=== PATIENT | male | born 1950 | race African-American/Black ===

== ENCOUNTER 2016-12-04 13:17 | Inpatient (IN) | payer BC ==
[~2016-12-04] VITALS: Ht 172.7 cm; Wt 82.7 kg
[2016-12-04 14:16] LABS: BASO # 0.1 x10^3/uL (0.0-0.2); BASO % 1 % (0-3); EOS % 2 % (0-3); HEMATOCRIT 43.4 % (39.0-53.0); HEMOGLOBIN 14.5 g/dL (13.0-17.5); LYMPH # 2.1 x10^3/uL (1.0-4.8); LYMPH % 27 % (24-48); MEAN CORPUSCULAR HEMOGLOBIN 32 pg (25-35); MEAN CORPUSCULAR HGB CONC 34 g/dL (31-37); MEAN CORPUSCULAR VOLUME 95 fL (79-100); MONO % 7 % (0-9); NEUT % 64 % (31-73); PLATELET COUNT 197 x10^3/uL (140-400); RED BLOOD COUNT 4.56 x10^6/uL (4.30-5.70); RED CELL DISTRIBUTION WIDTH 14.6 % (11.5-14.5); WHITE BLOOD COUNT 7.9 x10^3/uL (4.0-11.0)
[2016-12-04 14:27] LABS: PROTHROMBIN TIME PATIENT 12.5 SEC (11.7-14.0)
[2016-12-04 14:40] LABS: CALCIUM 9.7 mg/dL (8.5-10.1); CREATININE 1.4 mg/dL (0.7-1.3); GFR 61.7; POTASSIUM 3.6 mmol/L (3.5-5.1)
[2016-12-04 14:43] LABS: ALBUMIN 3.3 g/dL (3.4-5.0); ALBUMIN/GLOBULIN RATIO 0.7 (1.0-1.7); TOTAL BILIRUBIN 0.3 mg/dL (0.2-1.0); TOTAL PROTEIN 7.9 g/dL (6.4-8.2)
[2016-12-04] MEDS ORDERED: ASPIRIN 325 MG TABLET PO ONE (14:45)
[2016-12-04] MEDS ORDERED: HEPARIN for IV BOLUS 10,000 UNIT/10 ML VIAL. IV PRN (15:00)
--- NOTE | 2016-12-04 15:05 | RAD ---
Portable chest, 12/04/2016: History: Shortness of breath Comparison is made to a study from 03/10/2013. The heart is within normal limits in size. There is mild tortuosity of the aorta. The pulmonary vascularity appears to be congested with mild loss of vascular margination. No pulmonary consolidation is seen. There is no evidence of pleural fluid. IMPRESSION: Vascular congestion with probable mild perihilar-perivascular pulmonary edema.
[2016-12-04] MEDS ORDERED: IOHEXOL 300 MG/ML 75 ML VIAL IV ONE (15:15)
[2016-12-04] MEDS ORDERED: CONTRAST GIVEN MC PRN (15:15)
[2016-12-04] MEDS ORDERED: HEPARIN for IV BOLUS 10,000 UNIT/10 ML VIAL. IV ONE (15:30)
[2016-12-04] MEDS ORDERED: FUROSEMIDE 40 MG/4 ML VIAL. IVP ONE (15:30)
--- NOTE | 2016-12-04 15:34 | PDOC2 ---
HANNAH SEWELL CHECK OUT CLERK 12/04/16 1534: CARDIAC CONSULT DATE OF CONSULT Date of Consult DATE: 12/04/16 TIME: 15:31 REASON FOR CONSULT Reason for Consult: Chest pain REFERRING PHYSICIAN Referring Physician: Fiona SOURCE Source: Chart review, Patient HISTORY OF PRESENT ILLNESS HISTORY OF PRESENT ILLNESS This is a pleasant 66 yo male admitted for complains of SOA. reports that this started 2 days ago. Typical home activities such as going around the house and stairs made him easily SOA. He noticed that since this started it has progressed. Reports that the other night he was trying to go to bed and he was restless and SOA. Positive for orthopnea. 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 Reports that his chest pain lasted about 1 hour before it got a little better. He said he does not have any routine use of marijuana and cocaine but he last used both last Sunday. He also smokes tobacco. Denies any prior CAD, VTE, recent injury, falls , MVA nor CHF. No excessive caffeinated beverage use nor routine use of NSAIDS. Reports no prior CHF or any arrhythmias in the past. Medication bernard he takes lisinopril and HCTZ which he skips at times. PAST MEDICAL HISTORY Cardiovascular: HTN Pulmonary: Other (SIXTO) CENTRAL NERVOUS SYSTEM: Other (No pertinent history) GI: No pertinent hx Heme/Onc: No pertinent hx Hepatobiliary: No pertinent hx Psych: No pertinent hx Musculoskeletal: Osteoarthritis Rheumatologic: No pertinent hx Infectious disease: No pertinent hx ENT: No pertinent hx Renal/: Chronic renal insuff (?) Endocrine: No pertinent hx Dermatology: No pertinent hx PAST SURGICAL HISTORY Past Surgical History: No pertinent history FAMILY HISTORY Family History noncontributory to CV SOCIAL HISTORY Smoke: No ALCOHOL: occassional Drugs: Cocaine, Marijuana Lives: Alone CURRENT MEDICATIONS CURRENT MEDICATIONS Current Medications Medications (Trade) Dose Ordered Sig/Dorita Route PRN Reason Start Time Stop Time Status Last Admin Dose Admin Aspirin (Kristy Aspirin) 325 mg 1X ONCE PO 12/04/16 14:45 12/04/16 14:46 DC 12/04/16 14:24 Iohexol (Omnipaque 300 Mg/ml) 75 ml 1X ONCE IV 12/04/16 15:15 12/04/16 15:16 DC 12/04/16 15:23 ALLERGIES ALLERGIES: Coded Allergies: No Known Drug Allergies (Unverified , 12/04/16) ROS Review of System 14 point ROS evaluated with pertinent positives noted per HPI PHYSICAL EXAM General: Alert, Oriented X3, Cooperative, mild distress HEENT: Atraumatic, Mucous membr. moist/pink Lungs: Other (bibasilar crackles) Heart: Regular rate, Normal S1, Normal S2, Other (S3; 2/6 systolic murmur to LLS border) Abdomen: Soft, No tenderness Extremities: No cyanosis, Other (trace LE edema) Skin: No breakdown, No significant lesion Neuro: Normal speech, Sensation intact Psych/Mental Status: Mental status NL, Mood NL MUSCULOSKELETAL: Osteoarthritic changes both hands VITALS VITALS Vital Signs Date Time Temp Pulse Resp B/P Pulse Ox O2 Delivery O2 Flow Rate FiO2 12/04/16 13:38 98.4 110 20 198/120 90 Room Air 98.4 LABS Lab: Laboratory Tests Test 12/04/16 13:30 White Blood Count 7.9x10^3/uL (4.0-11.0) Red Blood Count 4.56x10^6/uL (4.30-5.70) Hemoglobin 14.5g/dL (13.0-17.5) Hematocrit 43.4% (39.0-53.0) Mean Corpuscular Volume 95fL (79-100) Mean Corpuscular Hemoglobin 32pg (25-35) Mean Corpuscular Hemoglobin Concent 34g/dL (31-37) Red Cell Distribution Width 14.6% (11.5-14.5) Platelet Count 197x10^3/uL (140-400) Neutrophils (%) (Auto) 64% (31-73) Lymphocytes (%) (Auto) 27% (24-48) Monocytes (%) (Auto) 7% (0-9) Eosinophils (%) (Auto) 2% (0-3) Basophils (%) (Auto) 1% (0-3) Neutrophils # (Auto) 5.1x10^3uL (1.8-7.7) Lymphocytes # (Auto) 2.1x10^3/uL (1.0-4.8) Monocytes # (Auto) 0.6x10^3/uL (0.0-1.1) Eosinophils # (Auto) 0.1x10^3/uL (0.0-0.7) Basophils # (Auto) 0.1x10^3/uL (0.0-0.2) Prothrombin Time 12.5SEC (11.7-14.0) Prothromb Time International Ratio 1.0 (0.8-1.1) Activated Partial Thromboplast Time 27SEC (24-38) D-Dimer (Juany) 0.72ug/mlFEU (0.00-0.50) Sodium Level 143mmol/L (136-145) Potassium Level 3.6mmol/L (3.5-5.1) Chloride Level 106mmol/L (98-107) Carbon Dioxide Level 26mmol/L (21-32) Anion Gap 11 (6-14) Blood Urea Nitrogen 18mg/dL (8-26) Creatinine 1.4mg/dL (0.7-1.3) Estimated GFR (Cockcroft-Gault) 61.7 BUN/Creatinine Ratio 13 (6-20) Glucose Level 117mg/dL (70-99) Calcium Level 9.7mg/dL (8.5-10.1) Total Bilirubin 0.3mg/dL (0.2-1.0) Aspartate Amino Transf (AST/SGOT) 80U/L (15-37) Alanine Aminotransferase (ALT/SGPT) 80U/L (16-63) Alkaline Phosphatase 81U/L (46-116) Troponin I Quantitative 0.194ng/mL (0.000-0.055) JK-Brf-L-Type Natriuretic Peptide 3733pg/mL (0-124) Total Protein 7.9g/dL (6.4-8.2) Albumin 3.3g/dL (3.4-5.0) Albumin/Globulin Ratio 0.7 (1.0-1.7) ASSESSMENT/PLAN ASSESSMENT/PLAN 1. Acute CHF with possible diastolic dysfunction 2. Malignant HTN: hx of HTN with home ACEi/HCTZ use 3. Chest pain: Initial troponin 0.194. EKG SR with LAFB/LVH/BRADEN. Suspect induced by above with associated cocaine use 4. Polysubstance abuse: use marijuana and recent use of cocaine Sunday last week. 5. Hx of SIXTO: never got started on CPAP 6. Noncompliance: he skips his HTN meds. 7. Tobaccoism: 5 pk yr Recommendations 1. Vasotec IV x1. No BB with cocaine use 2. Restart home ACEi, start on norvasc. 3. Trend troponin, check TSH, lipids, Mg, 4. Lasix IV. 5. ECASA. Heparin drip initiated. 6. CTA has been done per ED awaiting results. 7. Discussed compliance and smoking cessation and abstinence from substance abuse. 8. Await TTE and will consider for ischemic workup.. Problems: JOSE M BALLESTEROS MD 12/04/16 1837: CARDIAC CONSULT ALLERGIES ALLERGIES: Coded Allergies: No Known Drug Allergies (Unverified , 12/04/16) ASSESSMENT/PLAN ASSESSMENT/PLAN Pt. seen and examined. Agree with above OYSTER FLOATER note. 66 y.o male with malignant HTN, polysubstance abuse. ON exam he has normal heart tones. No edema. Labs/echo reviewed. Medical therapy and when compliant, can consider outpt cath. Problems: HANNAH SEWELL CHECK OUT CLERK Dec 04, 2016 15:34 JOSE M BALLESTEROS MD Dec 04, 2016 18:37
[2016-12-04] MEDS: HEPARIN 25,000UTS/500ML PREMIX 500 ML IV PRN (15:35)
--- NOTE | 2016-12-04 15:56 | RAD ---
CTA of the chest with contrast (pulmonary embolism protocol) 12/04/2016 Clinical History: Left-sided chest pain with elevated D dimer.. Technique: After the intravenous administration of 75 mL of Isovue-370, contiguous, 2 mm axial sections were obtained through the chest. 3-D MIP coronal and sagittal reconstructed images were obtained. One or more of the following individualized dose reduction techniques were utilized for this study: 1. Automated exposure control. 2. Adjustment of the mA and/or kV according to patient size. 3. Use of iterative reconstruction technique. Findings: No filling defects are seen within the major branches of either pulmonary artery. The heart is mildly enlarged. Mild atherosclerotic calcification of the thoracic aorta and its branches is seen. The thoracic aorta tapers normally. Small calcified hilar and mediastinal lymph nodes are seen. There are small bilateral pleural effusions, right greater than left. A 1 cm noncalcified nodule is seen involving the left lower lobe. No additional noncalcified pulmonary nodule is seen. Mild bullous emphysematous changes are seen involving the apices of both lungs. A small area of atelectasis and/or infiltrate is seen involving the right middle lobe. Dependent subsegmental atelectasis is seen involving both lower lobes. No pneumothorax is seen. Images through the upper abdomen demonstrate a 3 mm nonobstructing calculus involving the superior pole of the right kidney Impression: 1. There is no CT evidence of pulmonary embolism. 2. Cardiomegaly with small bilateral pleural effusions, right greater than left. 3. 1 cm noncalcified nodule is seen involving the left lower lobe. Depending on the patient's risk factors this nodule could be further evaluated with a PET/CT scan or a follow-up CT scan of the chest in 3 months to document its stability.
[2016-12-04] MEDS ORDERED: hydrALAZINE 20 MG/ML VIAL. IVP PRN ×2 (16:15)
[2016-12-04] MEDS ORDERED: ACETAMINOPHEN 325 MG TABLET. PO PRN (16:15)
[2016-12-04] MEDS ORDERED: MORPHINE SULFATE 2 MG/ML DISP.SYRIN. IV PRN (16:15)
[2016-12-04] MEDS ORDERED: NITROGLYCERIN SUBLINGUAL 0.4 MG BOTTLE OF 25. SL PRN (16:15)
[2016-12-04] MEDS ORDERED: ONDANSETRON PF 4 MG/2 ML VIAL. IV PRN (16:15)
--- NOTE | 2016-12-04 16:20 | ACF ---
Admission Forms Criteria MYOCARDIAL INFARCTION Clinical Indications for Admission to Inpatient Care (Place 'X' for any and all applicable criteria): Admission is indicated for 1 or more of the following (1)(2)(3)(4): [X]I. Acute IA [ ]II. Contraindications and/or Inappropriate clinical situations for Observational Care in patients with Myocardial Infarction, when ANY ONE of the following is required: [ ]a) Patient with High risk of cardiac embolism (e.g, patients with previous cardiac embolism, LVEF < 40%, age >75 and patients with prosthetic valve) 18 [ ]b) Patient with Moderate risk including DM patient, CAD and patient aged 65-75 18 [ ]c) Patient with any change in cardiac biomarker especially troponin should be managed as high risk in an inpatient setting 19 [ ]d) Physician judgement irrespective of ECG and other diagnostic findings 20 [ ]III.General contraindications and/or Inappropriate clinical situations for Observational Care in patients with Myocardial Infarction, when ANY ONE of the following is required: [ ]a) Prediction of prolongation of LOS based on ANY ONE of the following may be considered as a contraindication for observational care 2, 3, 4, 5, 6, 7, 8, 9, 10, 11 [ ]i) Age > 65 yrs. [ ]ii) Patient arriving by ambulance [ ]iii) Patient with high acuity [ ]iv) Patient requiring vital sign monitoring [ ]v) Patient on IV medication [ ]b) Systolic blood pressures greater than or equal to 180mmHg 3,12 [ ]c) Patient with altered mental status including delirium and other alteration of consciousness, (3) [ ]d) Patient whose discharge disposition will be to a intermediate home or rehabilitation home should not be managed in Emergency Department Observation Unit. CMS rule requires 3 days hospital stay before such placement. 3,13 [ ]e) Patient with failure to thrive due to broad array of etiologies 3 ,16,17 [ ]f) Inability to ambulate 3,14 Extended stay beyond goal length of stay may be needed for (1)(18)(20)(24)(25): [ ]a) Hemodynamic instability, persisting symptoms after intensive medical management, or recurring severe, prolonged symptoms [ ]b) Intravascular procedural complications such as acute vessel closure, stent thrombosis, stent malposition, or vessel dissection (26)(27)(28) [ ]c) Extravascular procedural complications such as retroperitoneal hematoma , pericardial effusion, or cardiac tamponade [ ]d) Entry site complications causing bleeding, hematoma or distal ischemia and requiring ongoing monitoring, surgical repair or surgical thrombectomy. Dangerous arrhythmia [ ]e) Complicated percutaneous coronary intervention (e.g., unsuccessful percutaneous coronary intervention or percutaneous coronary intervention of non- [place] vessel) [ ]f) Urgent or emergent surgery for complications of IA (e.g., ventricular rupture, valvular insufficiency) [ ]g) Surgical revascularization via coronary artery bypass graft [ ]h) Heart failure (e.g., pulmonary edema) [ ]i) Unstable pulmonary comorbidities, including COPD or pneumonia (31) [ ]j) Acute renal failure The original [employer] content created by [employer] has been revised. The portions of the content which have been revised are identified through the use of italic text or in bold, and [facility] has neither reviewed nor approved the modified material. All other unmodified content is copyright [facility] [employer] Please see references footnoted in the original [facility] [employer] edition 2016 Admission Criteria Met?: Yes SHANT VILLANUEVA Dec 04, 2016 16:19
[2016-12-04] MEDS ORDERED: LABETALOL 20 MG/4 ML DISP.SYRIN. IVP ONE (16:30)
[2016-12-04] MEDS ORDERED: ENALAPRILAT 1.25 MG/ML VIAL. IV ONE (16:30)
--- NOTE | 2016-12-04 16:48 | EKG ---
[facility] [address] [place] [address] Test Date: 2016-12-04 Test Time: 13:24:01 Pat Name: ALEJANDRO VILLALOBOS Department: Room: Gender: M Ct Tech: : 1950 Requested By: JANES BROWN Order Number: [id number] Reading MD: Measurements Intervals [place] Rate: 112 P: 61 DC: 128 QRS: -27 QRSD: 96 T: 71 QT: 344 QTc: 471 Interpretive Statements SINUS TACHYCARDIA LEFT ATRIAL ABNORMALITY LEFTWARD AXIS CONSIDER LEFT VENTRICULAR HYPERTROPHY QRS(T) CONTOUR ABNORMALITY CONSIDER ANTEROLATERAL MYOCARDIAL DAMAGE ABNORMAL ECG RI6.01 No previous ECG available for comparison
--- NOTE | 2016-12-04 17:40 | CARD ---
APPROVED REPORT EXAM: Two-dimensional and M-mode echocardiogram with Doppler and color Doppler. Other Information Quality : Good INDICATION Non STEMI 2D DIMENSIONS RVDd2.7 (2.9-3.5cm)Left Atrium(2D)4.5 (1.6-4.0cm) IVSd1.4 (0.7-1.1cm)Aortic Root(2D)3.1 (2.0-3.7cm) LVDd5.6 (3.9-5.9cm)LVOT Diameter2.4 (1.8-2.4cm) PWd1.4 (0.7-1.1cm)LVDs4.9 (2.5-4.0cm) FS (%) 12.8 %SV42.4 ml LVEF(%)27.1 (>50%) M-Mode DIMENSIONS MV EPSS2.6 (<0.5cm) Aortic Valve AoV Peak Luis Angel.116.7cm/sAoV VTI15.9cm AO Peak GR.5.4mmHgLVOT VTI 10.82cm AO Mean GR.3mmHgAVA (VTI)3.00cm2 Mitral Valve MV E Fiwizhql40.1cm/sMV DECEL SBUR580sx MV A Vcjmkygj92.5cm/sE/A Ratio0.9 TDI Lateral E' P. V4.70cm/sMedial E' P. V5.66cm/s E/Lateral E'18.3E/Medial E'15.2 Tricuspid Valve TR P. Jqkxsioh492ub/sRAP [id number] TR Peak Gr.[id number] LEFT VENTRICLE The Left Ventricle is mildly dilated. There is mild concentric left ventricular hypertrophy. Left brian tricle systolic function is significantly decreased. The Ejection Fraction is 25-30%. There is global hypokinesis of the left ventricle. RIGHT VENTRICLE The right ventricle is normal size. The right ventricular systolic function is normal. ATRIA The left atrium is mildly dilated. The right atrium size is normal. The interatrial septum is intact with no evidence for an atrial septal defect or patent foramen ovale as noted on 2-D or Doppler imagi ng. AORTIC VALVE The aortic valve is normal in structure and function. Doppler and Color Flow revealed trace aortic re gurgitation. There is no significant aortic valvular stenosis. MITRAL VALVE The mitral valve is normal in structure and function. There is no evidence of mitral valve prolapse. There is no mitral valve stenosis. Doppler and Color-flow revealed mild to moderate mitral regurgitat ion. TRICUSPID VALVE The tricuspid valve is normal in structure and function. Doppler and Color Flow revealed mild tricusp id regurgitation. The PA pressure was estimated at 52 mmHg. There is no tricuspid valve stenosis. PULMONIC VALVE The pulmonary valve is normal in structure and function. Doppler and Color Flow revealed no pulmonic valvular regurgitation. There is no pulmonic valvular stenosis. GREAT VESSELS The aortic root is normal in size. The ascending aorta is not well seen. The IVC is normal in size an d collapses >50% with inspiration. PERICARDIAL EFFUSION There is no evidence of significant pericardial effusion. Critical Notification Critical Value: No <Conclusion> The Left Ventricle is mildly dilated. Left ventricle systolic function is significantly decreased. The Ejection Fraction is 25-30%. There is global hypokinesis of the left ventricle. There is mild concentric left ventricular hypertrophy. There is no significant aortic valvular stenosis. Doppler and Color Flow revealed trace aortic regurgitation. Doppler and Color-flow revealed mild to moderate mitral regurgitation. Doppler and Color Flow revealed mild tricuspid regurgitation. The PA pressure was estimated at 52 mmHg.
[2016-12-04 18:15] VITALS: BP 146/102
[2016-12-04 19:15] VITALS: BP 152/103
--- NOTE | 2016-12-04 19:25 | PHYS DOC ---
Past Medical History Past Medical History: Hypertension Past Surgical History: Other Additional Past Surgical Histo: RIGHT WRIST SX Alcohol Use: Occasionally Drug Use: Marijuana Adult General Chief Complaint Chief Complaint: SHORTNESS OF BREATH HPI HPI Patient is a 66 year old male who presents with chest pain and shortness of breath. Patient reports about one hour prior to arrival he had onset of dyspnea at rest associated with left-sided chest tightness which was nonradiating. He had similar episode yesterday while walking into his workplace which resolved spontaneously. Today he reports nausea and diaphoresis associated with symptoms. Denies fevers or chills, cough, lower extremity pain or swelling. Reports history of hypertension. Denies history of CAD or diabetes, current smoker. PCP is Dr. Fatima. Review of Systems Review of Systems Constitutional: Denies fever or chills Eyes: Denies change in visual acuity HENT: Denies nasal congestion or sore throat Respiratory: Denies cough, reports shortness of breath Cardiovascular: Reports chest pain, denies edema GI: Denies abdominal pain, nausea, vomiting, bloody stools or diarrhea : Denies dysuria or hematuria Musculoskeletal: Denies back pain or joint pain Integument: Denies rash or skin lesions Neurologic: Denies headache, focal weakness or sensory changes Current Medications Current Medications Current Medications Medications (Trade) Dose Ordered Sig/Dorita Start Time Stop Time Status Last Admin Dose Admin Aspirin (Kristy Aspirin) 325 mg 1X ONCE 12/04/16 14:45 12/04/16 14:46 DC 12/04/16 14:24 325 MG Allergies Allergies Allergies Coded Allergies Type Severity Reaction Last Updated Verified No Known Drug Allergies 12/04/16 No Physical Exam Physical Exam Constitutional: Well developed, well nourished, no acute distress, non-toxic appearance. HENT: Normocephalic, atraumatic, bilateral external ears normal, oropharynx moist, nose normal. Eyes: PERRLA, EOMI, conjunctiva normal, no discharge. Neck: supple, no stridor. Cardiovascular: RRR, no murmurs, no edema. Lungs & Thorax: LCTAB, no wheezing, no respiratory distress. no reproducible tenderness with palpation over anterior chest wall. Abdomen: soft, nontender, nondistended. Skin: Warm, dry, no erythema, no rash. Back: No tenderness. Extremities: No tenderness, no edema. no calf tenderness or swelling. Neurologic: Alert and oriented X 3, no focal deficits noted. Psychologic: Affect normal, judgement normal, mood normal. Current Patient Data Vital Signs Vital Signs Date Time Temp Pulse Resp B/P Pulse Ox O2 Delivery O2 Flow Rate FiO2 12/04/16 14:25 104 18 165/113 91 Room Air 12/04/16 13:38 98.4 98.4 Lab Values Laboratory Tests Test 12/04/16 13:30 White Blood Count 7.9x10^3/uL (4.0-11.0) Red Blood Count 4.56x10^6/uL (4.30-5.70) Hemoglobin 14.5g/dL (13.0-17.5) Hematocrit 43.4% (39.0-53.0) Mean Corpuscular Volume 95fL (79-100) Mean Corpuscular Hemoglobin 32pg (25-35) Mean Corpuscular Hemoglobin Concent 34g/dL (31-37) Red Cell Distribution Width 14.6% (11.5-14.5) H Platelet Count 197x10^3/uL (140-400) Neutrophils (%) (Auto) 64% (31-73) Lymphocytes (%) (Auto) 27% (24-48) Monocytes (%) (Auto) 7% (0-9) Eosinophils (%) (Auto) 2% (0-3) Basophils (%) (Auto) 1% (0-3) Neutrophils # (Auto) 5.1x10^3uL (1.8-7.7) Lymphocytes # (Auto) 2.1x10^3/uL (1.0-4.8) Monocytes # (Auto) 0.6x10^3/uL (0.0-1.1) Eosinophils # (Auto) 0.1x10^3/uL (0.0-0.7) Basophils # (Auto) 0.1x10^3/uL (0.0-0.2) Prothrombin Time 12.5SEC (11.7-14.0) Prothrombin Time INR 1.0 (0.8-1.1) PTT 27SEC (24-38) D-Dimer (Juany) 0.72ug/mlFEU (0.00-0.50) H Sodium Level 143mmol/L (136-145) Potassium Level 3.6mmol/L (3.5-5.1) Chloride Level 106mmol/L (98-107) Carbon Dioxide Level 26mmol/L (21-32) Anion Gap 11 (6-14) Blood Urea Nitrogen 18mg/dL (8-26) Creatinine 1.4mg/dL (0.7-1.3) H Estimated GFR (Cockcroft-Gault) 61.7 BUN/Creatinine Ratio 13 (6-20) Glucose Level 117mg/dL (70-99) H Calcium Level 9.7mg/dL (8.5-10.1) Magnesium Level 2.1mg/dL (1.8-2.4) Total Bilirubin 0.3mg/dL (0.2-1.0) Aspartate Amino Transferase (AST) 80U/L (15-37) H Alanine Aminotransferase (ALT) 80U/L (16-63) H Alkaline Phosphatase 81U/L (46-116) Troponin I Quantitative 0.194ng/mL (0.000-0.055) ER-Lcm-L-Type Natriuretic Peptide 3733pg/mL (0-124) H Total Protein 7.9g/dL (6.4-8.2) Albumin 3.3g/dL (3.4-5.0) L Albumin/Globulin Ratio 0.7 (1.0-1.7) L Thyroid Stimulating Hormone (TSH) 2.263uIU/mL (0.358-3.74) Laboratory Tests 12/04/16 13:30 Laboratory Tests 12/04/16 13:30 EKG EKG interpreted by me: sinus tachycardia rate 112, no acute ST/T waev changes, normal intervals, no ectopy, LVH.[] Radiology/Procedures Radiology/Procedures PROCEDURE: CHEST AP ONLY Portable chest, 12/04/2016: History: Shortness of breath Comparison is made to a study from 03/10/2013. The heart is within normal limits in size. There is mild tortuosity of the aorta. The pulmonary vascularity appears to be congested with mild loss of vascular margination. No pulmonary consolidation is seen. There is no evidence of pleural fluid. IMPRESSION: Vascular congestion with probable mild perihilar-perivascular pulmonary edema. DICTATED and SIGNED BY: CAL BAUER MD DATE: 12/04/16 7104 PROCEDURE: CT ANGIOGRAPHY CHEST CTA of the chest with contrast (pulmonary embolism protocol) 12/04/2016 Clinical History: Left-sided chest pain with elevated D dimer.. Technique: After the intravenous administration of 75 mL of Isovue-370, contiguous, 2 mm axial sections were obtained through the chest. 3-D MIP coronal and sagittal reconstructed images were obtained. One or more of the following individualized dose reduction techniques were utilized for this study: 1. Automated exposure control. 2. Adjustment of the mA and/or kV according to patient size. 3. Use of iterative reconstruction technique. Findings: No filling defects are seen within the major branches of either pulmonary artery. The heart is mildly enlarged. Mild atherosclerotic calcification of the thoracic aorta and its branches is seen. The thoracic aorta tapers normally. Small calcified hilar and mediastinal lymph nodes are seen. There are small bilateral pleural effusions, right greater than left. A 1 cm noncalcified nodule is seen involving the left lower lobe. No additional noncalcified pulmonary nodule is seen. Mild bullous emphysematous changes are seen involving the apices of both lungs. A small area of atelectasis and/or infiltrate is seen involving the right middle lobe. Dependent subsegmental atelectasis is seen involving both lower lobes. No pneumothorax is seen. Images through the upper abdomen demonstrate a 3 mm nonobstructing calculus involving the superior pole of the right kidney Impression: 1. There is no CT evidence of pulmonary embolism. 2. Cardiomegaly with small bilateral pleural effusions, right greater than left. 3. 1 cm noncalcified nodule is seen involving the left lower lobe. Depending on the patient's risk factors this nodule could be further evaluated with a PET/CT scan or a follow-up CT scan of the chest in 3 months to document its stability. DICTATED and SIGNED BY: ROSANNE AL MD DATE: 12/04/16 1534[] Course & Med Decision Making Course & Med Decision Making Pertinent Labs and Imaging studies reviewed. (See chart for details) Patient presents with chest pain and dyspnea. Aspirin administered upon arrival. Patient noted to be tachycardic upon arrival. Obtained labs, EKG, chest x-ray. No evidence of STEMI an EKG, troponin elevated as above. BNP elevated with findings of pulmonary edema on chest x-ray. Administered IV Lasix and initiated heparin drip per cardiovascular protocol. Consulted with Mark Pollock cardiology ED[facility] BRUSHER for Dr. Wade, agrees with plan and evaluated the patient here in the emergency department. Discussed findings with the patient and he agrees with plan for admission. Discussed with Dr. Lamb who agrees to admit to inpatient status. Patient admitted in stable condition. Critical care time: 35 minutes [] Dragon Disclaimer Dragon Disclaimer This electronic medical record was generated, in whole or in part, using a voice recognition dictation system. Departure Departure Impression: Primary Impression: NSTEMI (non-ST elevated myocardial infarction) Additional Impressions: Acute exacerbation of congestive heart failure Accelerated hypertension Tachycardia Acute renal failure Transaminitis Disposition: ADMITTED INPATIENT Admitting Physician: Elisa Lamb Condition: STABLE Problem Qualifiers JANES BROWN MD Dec 04, 2016 19:25
[2016-12-04 23:00] VITALS: BP 162/95
[2016-12-05] VITALS (11 sets, daily range): BP systolic 138–167; BP diastolic 98–109
--- NOTE | 2016-12-05 00:09 | HP ---
ADMIT DATE: 12/04/2016 CHIEF COMPLAINT: Chest pain. HISTORY OF PRESENT ILLNESS: The patient is a pleasant middle-aged -Swedish male, who presents to the ER with chest pain and associated shortness of breath has been occurring for a couple of days. Chest x-ray showing some vascular congestion. He also has an elevated troponin of 0.465. I have discussed the case with the ER physician. We are going to admit the patient and consult Cardiology. PAST MEDICAL HISTORY: Right wrist surgery, hypertension and marijuana use. ALLERGIES: None. FAMILY HISTORY: Coronary artery disease. SOCIAL HISTORY: Does not drink, smoke or take drugs. MEDICATIONS: Reviewed, please refer to the MRAD. REVIEW OF SYSTEMS: GENERAL: No history of weight change, weakness or fevers. SKIN: No bruising, hair changes or rashes. EYES: No blurred, double or loss of vision. NOSE AND THROAT: No history of nosebleeds, hoarseness or sore throat. CARDIAC: He complains of chest pain. PULONARY: He complains of shortness of breath. GASTROINTESTINAL: Denies changes in appetite, nausea, vomiting, diarrhea or constipation. GENITOURINARY: No history of frequency, urgency, hesitancy or nocturia. NEUROLOGIC: Denies history of numbness, tingling, tremor or weakness. PSYCHIATRIC: No history of panic, anxiety or depression. ENDOCRINE: No history of heat or cold intolerance, polyuria or polydipsia. EXTREMITIES: Denies muscle weakness, joint pain, pain on walking or stiffness. PHYSICAL EXAMINATION: VITAL SIGNS: Temperature afebrile, pulse 67, respirations 21, blood pressure 132/90. GENERAL: He is alert, cooperative. HEART: Normal S1, S2. LUNGS: Clear with some slight crackles. ABDOMEN: Soft, positive bowel sounds. EXTREMITIES: No edema. SKIN: No rashes. PSYCHIATRIC: He saw depressed. VASCULAR: Good capillary refill. ENDOCRINE: No thyromegaly. LYMPHATICS: No cervical nodes. HEMATOPOIETIC: No bruising. LABORATORY DATA: White count 7, hemoglobin 14, platelets 197. Electrolytes pending. Troponin 0.465. ASSESSMENT AND PLAN: Chest pain with elevated troponin and some [id number] systolic and diastolic heart failure. ____ also his BNP is high at 3733. The patient has been admitted. We will do cardiac monitoring, serial enzymes, serial EKGs, consult Cardiology, echocardiogram IV Lasix, heparin drip, daily aspirin. HORTENSIA NICKERSON DO DR: [email or web address]/damaris JOB#: [id number] / [id number]
[2016-12-05] MEDS: HEPARIN 25,000UTS/500ML PREMIX 500 ML IV PRN (01:38)
[2016-12-05 04:33] LABS: HEMATOCRIT 41.6 % (39.0-53.0); HEMOGLOBIN 13.9 g/dL (13.0-17.5); RED BLOOD COUNT 4.43 x10^6/uL (4.30-5.70); RED CELL DISTRIBUTION WIDTH 14.5 % (11.5-14.5); WHITE BLOOD COUNT 7.7 x10^3/uL (4.0-11.0)
[2016-12-05 04:53] LABS: CHOLESTEROL/HDL RATIO 2.6
[2016-12-05] MEDS: AMLODIPINE BESYLATE 10 MG TABLET. PO SCH (08:57)
[2016-12-05] MEDS: ASPIRIN ENTERIC COATED 81 MG TABLET.DR. PO SCH (08:57)
[2016-12-05] MEDS: LISINOPRIL 10 MG TABLET PO SCH (08:58)
[2016-12-05] MEDS ORDERED: LIDOCAINE 2% 20 ML VIAL. ONE (14:15)
[2016-12-05] MEDS ORDERED: IODIXANOL 320 MG/ML 100 ML VIAL. ONE (14:15)
[2016-12-05] MEDS ORDERED: NITROGLYCERIN 200 MCG/2 ML SYRINGE FOR CATH/VASC LAB. ONE (14:25)
[2016-12-05] MEDS ORDERED: VERAPAMIL 5 MG/2 ML VIAL. ONE (14:25)
[2016-12-05] MEDS ORDERED: HEPARIN for IV BOLUS 10,000 UNIT/10 ML VIAL. ONE (14:26)
[2016-12-05] MEDS ORDERED: MIDAZOLAM HCL/PF 2 MG/2 ML VIAL. ONE (14:26)
[2016-12-05] MEDS ORDERED: FENTANYL PF 100 MCG/2 ML VIAL. ONE (14:26)
[2016-12-05] MEDS ORDERED: HEPARIN for IV BOLUS 10,000 UNIT/10 ML VIAL. IART ONE (14:45)
[2016-12-05] MEDS ORDERED: LIDOCAINE 2% 20 ML VIAL. IJ ONE (14:45)
[2016-12-05] MEDS ORDERED: MIDAZOLAM HCL/PF 2 MG/2 ML VIAL. IV ONE (14:45)
[2016-12-05] MEDS ORDERED: IODIXANOL 320 MG/ML 100 ML VIAL. IART ONE (14:45)
[2016-12-05] MEDS ORDERED: NITROGLYCERIN 200 MCG/2 ML SYRINGE FOR CATH/VASC LAB. IART ONE (14:45)
[2016-12-05] MEDS ORDERED: VERAPAMIL 5 MG/2 ML VIAL. IART ONE (14:45)
[2016-12-05] MEDS ORDERED: FENTANYL PF 100 MCG/2 ML VIAL. IV ONE (14:45)
[2016-12-05] MEDS: FUROSEMIDE 40 MG/4 ML VIAL. IVP SCH (15:39)
--- NOTE | 2016-12-05 16:19 | PDOC ---
PROGRESS NOTES Chief Complaint Chief Complaint Acute respir failure ASSESSMENT AND PLAN: 1. CHF exacerbation: systolic and diastolic - echo today with EF 20-25%, L ventricle hypokinesis. IV lasix 2. CAD: troponin leak, also see echo. ?cocaine induced? to diag cath today. heparin gtt 3. HTN: non-compliant with home meds (MARVIN-I/HCTZ). started on lisinopril and norvasc; may need increase in dose with currently poorly controlled BP. vasotec PRN 4. Transaminitis: ? hepatitis vs helatic congestion. monitor for now. 5. CKD: stable creat 6. Polysubstance abuse: recent cocaine, also cannabis and tobacco 7. SIXTO: not on CPAP. Pulm F/U on O/P basis 8. Pulm Nodule: 1cm solitary nodule in smoker should be followed up with non- con CT in 3 months 9. prophylaxis: H2B Vitals Vitals Vital Signs Date Time Temp Pulse Resp B/P Pulse Ox O2 Delivery O2 Flow Rate FiO2 12/05/16 14:58 86 24 93 Nasal Cannula 2.0 12/05/16 11:47 98.0 155/109 98.0 Physical Exam General: Alert, Oriented X3, Cooperative, No acute distress Heart: Regular rate, Other (S3; 2/6 systolic murmur to LLS border) Lungs: Clear Abdomen: Normal bowel sounds, Soft, No tenderness Extremities: No clubbing, Other (trace LE edema) Skin: No rashes Labs LABS Laboratory Tests Test 12/04/16 22:10 12/05/16 01:00 12/05/16 04:03 12/05/16 07:30 Troponin I Quantitative 0.465ng/mL (0.000-0.055) 1.167ng/mL (0.000-0.055) Heparin Anti-Xa Act, Unfractionated 0.19IU/mL (0.30-0.70) 0.53IU/mL (0.30-0.70) White Blood Count 7.7x10^3/uL (4.0-11.0) Red Blood Count 4.43x10^6/uL (4.30-5.70) Hemoglobin 13.9g/dL (13.0-17.5) Hematocrit 41.6% (39.0-53.0) Mean Corpuscular Volume 94fL (79-100) Mean Corpuscular Hemoglobin 31pg (25-35) Mean Corpuscular Hemoglobin Concent 33g/dL (31-37) Red Cell Distribution Width 14.5% (11.5-14.5) Platelet Count 207x10^3/uL (140-400) Triglycerides Level 45mg/dL (0-150) Cholesterol Level 184mg/dL (0-200) LDL Cholesterol, Calculated 103mg/dL (0-100) VLDL Cholesterol, Calculated 9mg/dL (0-40) HDL Cholesterol 72mg/dL (40-60) Cholesterol/HDL Ratio 2.6 Review of Systems Review of Systems no acute issues. breathing better. WIL BUNCH MD Dec 05, 2016 16:19
--- NOTE | 2016-12-05 16:55 | CARD ---
APPROVED REPORT Procedure(s) performed: [facility] + Coronary angiography + Left ventriculogram. HISTORY The patient is a 66 year-old male with a history of : previous FL, previous CHF, tobacco history() , hypertension. INDICATION The indication(s) include : non-STEMI . PROCEDURE NARRATIVE The patient was brought electively to the cardiac catheterization lab. A timeout was performed confi rming the patient's name, date of , procedure, and site of procedure. All necessary personnel w ere wearing the appropriate protective equipment and radiation monitor devices. After explaining the risks and benefits of the procedure and alternatives, informed consent was obtained. (See nursing no gladys for medications administered). The right wrist was sterilely prepped and draped in the usual fas hion. The right wrist was infiltrated with 1 mL of 2% lidocaine for subcutaneous anesthesia. A 6 Fr ench Terumo glide sheath was inserted into the right radial artery without difficulty. Right and lef t coronary angiography was performed using a 6Fr TIG 4.0 catheter. Left ventricular end diastolic pr essure was obtained with a pigtail catheter and pullback was performed after left ventriculography. All catheter exchanges and advancements were performed over a guidewire. At case completion the righ t radial sheath was removed and a Terumo radial band was applied with 13 ml of air. The patient tole rated the procedure well and there were no immediate complications. HEMODYNAMICS: LVEDP 18 mm Hg No gradient on LV to aortic pullback. LEFT VENTRICULOGRAM: EF 35% Global hypokinesis. CORONARY ANGIOGRAPHY: LM is a large caliber vessel with normal angiographic appearance. LAD is a large caliber vessel with normal angiographic appearance. Ramus is a moderate caliber vessel with normal angiographic apeparance. LCx is a moderate caliber non-dominant vessel with a 80% stenosis in the distal small caliber AV groo ve vessel. OM1 is a moderate caliber vessel with normal angiographic appearance. RCA is a large caliber dominant vessel with normal angiographic appearance. RPDA and RPL are moderate caliber vessels with normal angiographic appearance. Conclusion 1. One vessel CAD with disease in the distal AV groove circumflex. No significant large vessel CAD 2. Severe LV dysfunction with dilated cardiomyopathy 3. Elevated LVEDP. Recommendations Aggressive Medical Therapy
[2016-12-05] MEDS ORDERED: FAMOTIDINE 20 MG TABLET. PO SCH (21:00)
[2016-12-06 03:00] VITALS: BP 145/91
[2016-12-06 04:25] LABS: ALBUMIN 2.8 g/dL (3.4-5.0); ALBUMIN/GLOBULIN RATIO 0.7 (1.0-1.7); CREATININE 1.5 mg/dL (0.7-1.3); MAGNESIUM 2.1 mg/dL (1.8-2.4); POTASSIUM 3.3 mmol/L (3.5-5.1); TOTAL BILIRUBIN 0.4 mg/dL (0.2-1.0); TOTAL PROTEIN 6.8 g/dL (6.4-8.2)
[2016-12-06 06:38] LABS: BASO % 0 % (0-3); EOS % 2 % (0-3); HEMATOCRIT 40.3 % (39.0-53.0); HEMOGLOBIN 13.5 g/dL (13.0-17.5); LYMPH # 1.8 x10^3/uL (1.0-4.8); LYMPH % 26 % (24-48); MEAN CORPUSCULAR HEMOGLOBIN 32 pg (25-35); MEAN CORPUSCULAR HGB CONC 34 g/dL (31-37); MEAN CORPUSCULAR VOLUME 96 fL (79-100); MONO % 9 % (0-9); NEUT % 63 % (31-73); PLATELET COUNT 188 x10^3/uL (140-400); RED BLOOD COUNT 4.21 x10^6/uL (4.30-5.70); RED CELL DISTRIBUTION WIDTH 14.5 % (11.5-14.5); WHITE BLOOD COUNT 7.1 x10^3/uL (4.0-11.0)
[2016-12-06 07:00] VITALS: BP 148/102
[2016-12-06] MEDS: ASPIRIN ENTERIC COATED 81 MG TABLET.DR. PO SCH (08:49)
[2016-12-06] MEDS: LISINOPRIL 10 MG TABLET PO SCH (08:49)
[2016-12-06] MEDS: FUROSEMIDE 40 MG/4 ML VIAL. IVP SCH (08:50)
[2016-12-06] MEDS: AMLODIPINE BESYLATE 10 MG TABLET. PO SCH (08:50)
--- NOTE | 2016-12-06 11:09 | PDOC ---
HANNAH SEWELL [employer]EN[employer]IAN [employer]ER 12/06/16 1109: CARDIO Progress Notes Date and Time Date of Service 12/06/2016 Time of Evaluation 1100 Subjective Subjective: No Chest Pain, No shortness of breath, No Palpitations, No Dizziness Vitals Vitals Vital Signs Date Time Temp Pulse Resp B/P Pulse Ox O2 Delivery O2 Flow Rate FiO2 12/06/16 08:50 71 148/102 12/06/16 07:58 Room Air 12/06/16 07:00 97.7 20 95 97.7 12/05/16 14:58 2.0 Weight Weight [ ] Input and Output Intake and Output Intake and Output 12/06/16 07:00 Intake Total 1200 ml Output Total 600 ml Balance 600 ml Intake Oral 1200 ml Output Urine Total 600 ml # Voids 2 Laboratory Labs Laboratory Tests Test 12/06/16 03:40 White Blood Count 7.1x10^3/uL (4.0-11.0) Red Blood Count 4.21x10^6/uL (4.30-5.70) Hemoglobin 13.5g/dL (13.0-17.5) Hematocrit 40.3% (39.0-53.0) Mean Corpuscular Volume 96fL (79-100) Mean Corpuscular Hemoglobin 32pg (25-35) Mean Corpuscular Hemoglobin Concent 34g/dL (31-37) Red Cell Distribution Width 14.5% (11.5-14.5) Platelet Count 188x10^3/uL (140-400) Neutrophils (%) (Auto) 63% (31-73) Lymphocytes (%) (Auto) 26% (24-48) Monocytes (%) (Auto) 9% (0-9) Eosinophils (%) (Auto) 2% (0-3) Basophils (%) (Auto) 0% (0-3) Neutrophils # (Auto) 4.5x10^3uL (1.8-7.7) Lymphocytes # (Auto) 1.8x10^3/uL (1.0-4.8) Monocytes # (Auto) 0.6x10^3/uL (0.0-1.1) Eosinophils # (Auto) 0.1x10^3/uL (0.0-0.7) Basophils # (Auto) 0.0x10^3/uL (0.0-0.2) Sodium Level 139mmol/L (136-145) Potassium Level 3.3mmol/L (3.5-5.1) Chloride Level 104mmol/L (98-107) Carbon Dioxide Level 27mmol/L (21-32) Anion Gap 8 (6-14) Blood Urea Nitrogen 17mg/dL (8-26) Creatinine 1.5mg/dL (0.7-1.3) Estimated GFR (Cockcroft-Gault) 57.0 BUN/Creatinine Ratio 11 (6-20) Glucose Level 133mg/dL (70-99) Calcium Level 9.0mg/dL (8.5-10.1) Magnesium Level 2.1mg/dL (1.8-2.4) Total Bilirubin 0.4mg/dL (0.2-1.0) Aspartate Amino Transf (AST/SGOT) 30U/L (15-37) Alanine Aminotransferase (ALT/SGPT) 57U/L (16-63) Alkaline Phosphatase 70U/L (46-116) Total Protein 6.8g/dL (6.4-8.2) Albumin 2.8g/dL (3.4-5.0) Albumin/Globulin Ratio 0.7 (1.0-1.7) Physical Exam HEENT: Neck Supple W Full Motion Chest: Symmetric LUNGS: Clear to Auscultation Heart: S1S2, RRR (SR, no significant ectopies overnight) Abdomen: Soft N/T Extremities: No Edema, No Calf Tenderness Neurology: alert, oriented, follow commands Other Exams right wrist arteriotomy site D/! no erythema, neurovascular status intact Assessment Assessment 1. New Dilated Cardiomyopathy: combined ischemic/nonischemic, EF 25-30%. NYHA2 2. NSTEMI/CAD: S/P [facility] 12/05/2016 with one vessel CAD with disease in the distal AV groove circumflex, no significant large vessel CAD, no PCI. 3. Acute systolic CHF: compensated 4. Malignant HTN: better 5. Polysubstance abuse; marijuana/cocaine 6. Hx of SIXTO: will need outpt reevaluation for optimization 7. Tobaccoism Recommendations 1. Significant discussion regarding cardiomyopathy, CAD, treatment regimen, abstinence to cocaine/marijuana, and smoking cessation 2. Smoking cessation, dietitian to see, daily weight, home daily BP monitoring, fluid restrictions 2-2.5 L daily 3. CM and SW for disability 4. Arrange for lifevest preferably prior to DC, reeval EF in 3 months after significant optimization 5. Follow up in office in 4 weeks 6. Cardiac rehab encouraged 7. Post cath instructions. 8. Home cardiac meds include, lasix, ASA, coreg, KCL, lipitor, lisinopril 9. Will evaluate for entresto use as an outpt. 10. PCP for pulmonary referral for SIXTO workup. JOSE M BALLESTEROS MD 12/06/16 2232: CARDIO Progress Notes Plan Plan Pt. seen and examined. AGree with above RADIOLOGIC TECHNOLOGY PROGRAM DIRECTOR note. No acute events overnight. BP better controlled today No changes to exam. Will f/u in the office in 4 weeks. Thanks for consultation. HANNAH SEWELL [employer] BL[employer]ER Dec 06, 2016 11:09 JOSE M BALLESTEROS MD Dec 06, 2016 22:32
[2016-12-06] MEDS ORDERED: POTASSIUM CHLORIDE 20 MEQ TABLET.ER. PO ONE (11:15)
[2016-12-06 11:24] VITALS: BP 134/99
[2016-12-06] MEDS ORDERED: CARVEDILOL 6.25 MG TABLET. PO SCH (12:00)
[2016-12-06] MEDS ORDERED: CLOPIDOGREL BISULFATE 75 MG TABLET PO SCH (12:00)
--- NOTE | 2016-12-06 12:56 | PDOC ---
PROGRESS NOTES Chief Complaint Chief Complaint Acute respir failure ASSESSMENT AND PLAN: 1. CHF exacerbation: systolic and diastolic - echo today with EF 20-25%, L ventricle hypokinesis. IV lasix. live vest before D/C. d/w Mr Pollock 2. CAD: troponin leak, also see echo. ?cocaine induced? to diag cath 2016: dz in the distal AV groove circumflex, no significant large vessel CAD. 3. HTN: non-compliant with home meds (MARVIN-I/HCTZ). started on lisinopril and norvasc; improved today. 4. Transaminitis: resolved; suspect 2/2 hepatic congestion. 5. CKD3: stable creat 6. Polysubstance abuse: recent cocaine, also cannabis and tobacco. abstinence strongly encouraged 7. SIXTO: not on CPAP. Pulm F/U on O/P basis 8. Pulm Nodule: 1cm solitary nodule in smoker should be followed up with non- con CT in 3 months 9. prophylaxis: H2B 10. Dispo: home today Vitals Vitals Vital Signs Date Time Temp Pulse Resp B/P Pulse Ox O2 Delivery O2 Flow Rate FiO2 12/06/16 11:47 81 134/99 12/06/16 11:24 98.1 20 93 Room Air 98.1 12/05/16 14:58 2.0 Physical Exam General: Alert, Oriented X3, Cooperative, No acute distress Heart: Regular rate, Other (S3; 2/6 systolic murmur to LLS border) Lungs: Clear Abdomen: Normal bowel sounds, Soft, No tenderness Extremities: No clubbing, Other (trace LE edema) Skin: No rashes Labs LABS Laboratory Tests Test 12/06/16 03:40 White Blood Count 7.1x10^3/uL (4.0-11.0) Red Blood Count 4.21x10^6/uL (4.30-5.70) Hemoglobin 13.5g/dL (13.0-17.5) Hematocrit 40.3% (39.0-53.0) Mean Corpuscular Volume 96fL (79-100) Mean Corpuscular Hemoglobin 32pg (25-35) Mean Corpuscular Hemoglobin Concent 34g/dL (31-37) Red Cell Distribution Width 14.5% (11.5-14.5) Platelet Count 188x10^3/uL (140-400) Neutrophils (%) (Auto) 63% (31-73) Lymphocytes (%) (Auto) 26% (24-48) Monocytes (%) (Auto) 9% (0-9) Eosinophils (%) (Auto) 2% (0-3) Basophils (%) (Auto) 0% (0-3) Neutrophils # (Auto) 4.5x10^3uL (1.8-7.7) Lymphocytes # (Auto) 1.8x10^3/uL (1.0-4.8) Monocytes # (Auto) 0.6x10^3/uL (0.0-1.1) Eosinophils # (Auto) 0.1x10^3/uL (0.0-0.7) Basophils # (Auto) 0.0x10^3/uL (0.0-0.2) Sodium Level 139mmol/L (136-145) Potassium Level 3.3mmol/L (3.5-5.1) Chloride Level 104mmol/L (98-107) Carbon Dioxide Level 27mmol/L (21-32) Anion Gap 8 (6-14) Blood Urea Nitrogen 17mg/dL (8-26) Creatinine 1.5mg/dL (0.7-1.3) Estimated GFR (Cockcroft-Gault) 57.0 BUN/Creatinine Ratio 11 (6-20) Glucose Level 133mg/dL (70-99) Calcium Level 9.0mg/dL (8.5-10.1) Magnesium Level 2.1mg/dL (1.8-2.4) Total Bilirubin 0.4mg/dL (0.2-1.0) Aspartate Amino Transf (AST/SGOT) 30U/L (15-37) Alanine Aminotransferase (ALT/SGPT) 57U/L (16-63) Alkaline Phosphatase 70U/L (46-116) Total Protein 6.8g/dL (6.4-8.2) Albumin 2.8g/dL (3.4-5.0) Albumin/Globulin Ratio 0.7 (1.0-1.7) Review of Systems Review of Systems no CP, SOB, dizziness or abd c/o WIL BUNCH MD Dec 06, 2016 12:56
[2016-12-06] MEDS ORDERED: ATOR20TA58 PO (15:00)
[2016-12-06] MEDS ORDERED: LISI10TA2 PO (15:00)
[2016-12-06] MEDS ORDERED: ASPI81TA9 PO (15:00)
[2016-12-06] MEDS ORDERED: CARV3.122 PO (15:00)
[2016-12-06] MEDS ORDERED: FURO40TA4 PO (15:00)
[2016-12-06] MEDS ORDERED: AMLO10TA2 PO (15:00)
[2016-12-06] MEDS ORDERED: CARVEDILOL 3.125 MG TABLET. PO SCH (17:00)
[2016-12-06 18:51] VITALS: BP 134/99
[2016-12-06] MEDS ORDERED: ATORVASTATIN CALCIUM 20 MG TABLET PO SCH (21:00)
[2016-12-07] MEDS ORDERED: POTASSIUM CHLORIDE 20 MEQ TABLET.ER. PO SCH (08:00)
[2016-12-07] MEDS ORDERED: FUROSEMIDE 40 MG TABLET. PO SCH (09:00)
--- NOTE | 2016-12-09 08:23 | DS ---
DATE OF DISCHARGE: 12/06/2016 CHIEF COMPLAINT: Acute respiratory failure. HOSPITAL COURSE: The patient is a 66-year-old gentleman who presented to the Emergency Room with hypoxic respiratory failure. He was diagnosed with CHF, which was a new diagnosis. Echo showed both systolic as well as diastolic failure with an echo showing an EF of 20-25% and left ventricular hypokinesis. He was treated with Lasix. Cardiology consult was obtained. He also was noted to have a troponin leak, unclear if primary or secondary to the CHF. Cocaine had been used by him in the recent past. A diagnostic cath was obtained on 12/05/2016 showing distal AV groove circumflex disease without significant large vessel problems. No intervention was undertaken. With resolution of his symptoms, he was deemed stable for discharge on 12/06/2016. PHYSICAL EXAMINATION: Please refer to note from same day, discharge date 12/06/2016. DISCHARGE DIAGNOSES: Congestive heart failure exacerbation, systolic and diastolic, non-ST segment elevation myocardial infarction. DISCHARGE DISPOSITION: To home. DISCHARGE CONDITION: Improved. DISCHARGE MEDICATIONS: Please refer to MAR. DISCHARGE INSTRUCTIONS: The patient will follow up with PCP in 1 week. WIL BUNCH MD DR: [email or web address]/nts JOB#: [id number] / [id number] NOAM James MD
== END 2016-12-06 19:13 | disposition home or self-care (01) | DRG 280 ==
LOC: ER 13:17 → ED HOLD 14:53 → 2 NORTH 17:45
PROVIDERS: ADMIT Internal Medicine; ATTEND Internal Medicine
PROC: 4A023N7 Measurement of Cardiac Sampling and Pressure, Left Heart, Percutaneous Approach (ICD-10-PCS; principal; 2016-12-05)
PROC: B2111ZZ Fluoroscopy of Multiple Coronary Arteries using Low Osmolar Contrast (ICD-10-PCS; 2016-12-05)
PROC: B2141ZZ Fluoroscopy of Right Heart using Low Osmolar Contrast (ICD-10-PCS; 2016-12-05)
DX: I21.4 Non-ST elevation (NSTEMI) myocardial infarction (principal); I50.43 Acute on chronic combined systolic (congestive) and diastolic (congestive) heart failure; I13.0 Hypertensive heart and chronic kidney disease with heart failure and stage 1 through stage 4 chronic kidney disease, or unspecified chronic kidney disease; I42.0 Dilated cardiomyopathy; N17.9 Acute kidney failure, unspecified; I25.10 Atherosclerotic heart disease of native coronary artery without angina pectoris; G47.33 Obstructive sleep apnea (adult) (pediatric); F17.200 Nicotine dependence, unspecified, uncomplicated; F14.10 Cocaine abuse, uncomplicated; M19.90 Unspecified osteoarthritis, unspecified site; F12.10 Cannabis abuse, uncomplicated; N18.3 Chronic kidney disease, stage 3 (moderate); Z82.49 Family history of ischemic heart disease and other diseases of the circulatory system; Z91.14 Patient's other noncompliance with medication regimen; Z91.19 Patient's noncompliance with other medical treatment and regimen
CPT/HCPCS: 36415; 71010; 71275; 80053; 80061; 83735; 83880; 84443; 84484; 85027; 85379; 85520; 85610; 85730; 93005; 93306; 93458; 96374; 96375; 99406; C1769; C1892; J1940; J2250; J3010; J3490; Q9967; 99291-25

== ENCOUNTER 2017-02-19 19:12 | Emergency (ER) | payer BC ==
[~2017-02-19] VITALS: Ht 172.7 cm; Wt 88.5 kg
[~2017-02-19 19:12] MED LIST: AMLO10TA2 PO; ASPI-612 PO; ATOR20TA58 PO; CARV3.122 PO; FURO40TA4 PO; LISI10TA2 PO
[2017-02-19] MEDS ORDERED: ALPRAZolam 0.25 MG TABLET PO ONE (20:45)
[2017-02-19 20:50] VITALS: BP 148/82
--- NOTE | 2017-02-19 21:20 | ED.ADGEN ---
Past Medical History Past Medical History: Hypertension, [place] Past Surgical History: Other Additional Past Surgical Histo: RIGHT WRIST SX Alcohol Use: Occasionally Drug Use: Marijuana Adult General Chief Complaint Chief Complaint: HYPERTENSION HPI HPI Patient is a 66 year old male with history of ischemic cardiomyopathy a sense with concerns for elevated blood pressure. Patient states he felt uneasy with headache earlier this evening. Headache is described as mild. Patient checked his blood pressure with home cough. Blood pressure was noted to be 200/100. Patient denies chest pain palpitations shortness of breath , increased leg pain or swelling. He is compliant with medications. Patient acknowledges being under considerable stress as his father just 2 days ago and the patient attended a this afternoon. Blood pressure noted to be 140/77 ED arrival. States symptoms of since resolved. Denies other acute symptoms or complaints at this time. Review of Systems Review of Systems ROS as per HPI Current Medications Current Medications Current Medications Medications (Trade) Dose Ordered Sig/Dorita Start Time Stop Time Status Last Admin Dose Admin Alprazolam (Xanax) 0.25 mg 1X ONCE 02/19/17 20:45 02/19/17 20:46 DC Allergies Allergies Allergies Coded Allergies Type Severity Reaction Last Updated Verified No Known Drug Allergies 12/04/16 No Physical Exam Physical Exam Constitutional: Well developed, well nourished, no acute distress, non-toxic appearance. HENT: Normocephalic, atraumatic, bilateral external ears normal, oropharynx moist, no oral exudates, nose normal. Eyes: PERRLA, EOMI, conjunctiva normal, no discharge. Neck: Normal range of motion, no tenderness. Cardiovascular:Heart rate regular rhythm, no murmur. Lungs & Thorax: Bilateral breath sounds clear to auscultation. Abdomen: Bowel sounds normal, soft, no tenderness. Skin: Warm, dry. Back: No tenderness. Extremities: No tenderness. Neurologic: Alert and oriented X 3, normal motor function, normal sensory function, no focal deficits noted. Psychologic: Affect normal, judgement normal, mood normal. Current Patient Data Vital Signs Vital Signs Date Time Temp Pulse Resp B/P (MAP) Pulse Ox O2 Delivery O2 Flow Rate FiO2 02/19/17 19:54 98.8 60 18 155/89 (111) 99 Room Air 98.8 EKG EKG [] Radiology/Procedures Radiology/Procedures [] Course & Med Decision Making Course & Med Decision Making Pertinent Labs and Imaging studies reviewed. (See chart for details) [Symptomatically the ED. Blood pressure improved without treatment. Patient attends assembly is under considerable stress, possibly contributing to an elevation in his blood pressure. Anxiety medication offered for symptomatic relief. PCP/cardiology follow-up as needed. Return precautions reviewed.] Dragon Disclaimer Dragon Disclaimer This electronic medical record was generated, in whole or in part, using a voice recognition dictation system. ORI PALACIO DO Feb 19, 2017 21:20
--- NOTE | 2017-02-20 08:41 | EKG ---
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
== END 2017-02-19 21:00 | disposition home or self-care (01) ==
LOC: ER 19:16
DX: I10 Essential (primary) hypertension (principal); R05 Cough; I25.2 Old myocardial infarction; F12.10 Cannabis abuse, uncomplicated
CPT/HCPCS: 93005; 99284-25

== ENCOUNTER 2017-04-02 22:59 | Emergency (ER) | payer BC ==
[~2017-04-02] VITALS: Ht 172.7 cm; Wt 90.3 kg
--- NOTE | 2017-04-03 00:18 | PHYS DOC ---
Past Medical History Past Medical History: Hypertension, [place] Past Surgical History: Other Additional Past Surgical Histo: RIGHT WRIST SX Alcohol Use: Occasionally Drug Use: None Adult General Chief Complaint Chief Complaint: HYPERTENSION HPI HPI Patient is a 66 year old male brought to the ED by a family member with a complaint of headache, blood pressure elevated. Patient states he had a heart attack a few months ago. He is wearing an external defibrillator vest. He states he has been taking his medication as prescribed and has not missed any doses. He woke up this morning and his neck felt stiff "I thought I slept wrong ". He went ahead to work, he works at [employer], and didn't have any trouble. After work he had a headache and his sister checked his blood pressure and it was 170/ 105. He took 2 regular strength aspirin just about 30 minutes ago. It has not helped his headache yet. Patient does not usually check his blood pressure on a regular basis. We went over his meds and he is taking his antihypertensives but he has carvedilol ordered 3.125 twice a day and he takes both of them out once in the morning. His other meds he also takes in the morning. 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, he has an appointment with him next week Review of Systems Review of Systems Constitutional: Denies fever or chills [] Respiratory: Denies cough or shortness of breath [] Cardiovascular: Denies chest pain GI: Denies abdominal pain, nausea, vomiting Neurologic: As in history of present illness Current Medications Current Medications Current Medications Medications (Trade) Dose Ordered Sig/Dorita Start Time Stop Time Status Last Admin Dose Admin Carvedilol (Coreg) 3.125 mg 1X ONCE 04/03/17 00:30 04/03/17 00:31 DC 04/03/17 00:19 3.125 MG Ketorolac Tromethamine (Toradol) 30 mg 1X ONCE 04/03/17 00:30 04/03/17 00:31 DC 04/03/17 00:19 30 MG Metoprolol Tartrate (Lopressor) 5 mg 1X ONCE 04/03/17 00:30 04/03/17 00:31 DC 04/03/17 00:19 5 MG Allergies Allergies Allergies Coded Allergies Type Severity Reaction Last Updated Verified No Known Drug Allergies 12/04/16 No Physical Exam Physical Exam Constitutional: Well developed, well nourished, no acute distress, non-toxic appearance. Blood pressure at triage was 158/84, when he reached the room it was 201/102 rate in the 80s HENT: Normocephalic, atraumatic, bilateral external ears normal, nose normal. [ ] Eyes: conjunctiva normal, no discharge. [] Neck: Normal range of motion, no stridor. Supple, normal in appearance. Cardiovascular:Heart rate regular rhythm, no murmur [] Lungs & Thorax: Bilateral breath sounds clear to auscultation [] Abdomen: Bowel sounds normal, soft, no tenderness, no masses, no pulsatile masses. [] Skin: Warm, dry, no erythema, no rash. [] Extremities: No tenderness, no cyanosis, no clubbing, ROM intact, no edema. [] Neurologic: Alert and oriented X 3, normal motor function, normal sensory function, no focal deficits noted. [] Current Patient Data Vital Signs Vital Signs Date Time Temp Pulse Resp B/P (MAP) Pulse Ox O2 Delivery O2 Flow Rate FiO2 04/03/17 00:30 68 18 162/89 (113) 97 Room Air 04/02/17 23:48 99.0 99.0 Lab Values Laboratory Tests Test 04/03/17 00:06 POC Hemoglobin 14.6 g/dL (14-18) POC Hematocrit 43 % (37-52) POC Sodium 140 mmol/L (135-145) POC Potassium 3.6 mmol/L (3.5-5.0) POC Chloride 102 mmol/L (98-110) POC Total CO2 26 mmol/L (23-32) Anion Gap 16 mmol/L (6-14) H POC Blood Urea Nitrogen 15 mg/dL (8-26) POC Creatinine 1.2 mg/dL (0.5-1.4) Glucose Level 122 mg/dL (70-99) H POC Ionized Calcium (Kelsey) 1.27 mmol/L (1.13-1.32) POC Troponin I 0.01 ng/ml (<0.08) Laboratory Tests 04/03/17 00:06 EKG EKG Twelve-lead EKG read by me. Sinus rhythm. Heart rate 79. There are no acute ST or T wave changes indicative of ischemia or infarction. No STEMI. [id number] [] Radiology/Procedures Radiology/Procedures [] Course & Med Decision Making Course & Med Decision Making Pertinent Labs and Imaging studies reviewed. (See chart for details) 66-year-old male who states he had a heart attack a few months ago presents with elevated blood pressure and a mild headache and neck muscle stiffness. He appears entirely nontoxic. I don't believe he has a serious cause of his headache or neck stiffness. He does not ordinarily check his blood pressure at home so it is hard to know whether his blood pressure has been running high before today. He is taking his meds except that he has been taking both doses of carvedilol together in the morning rather than taking it twice a day. I explained to him that he needs to take that every 12 hours. Here in the ED we will check some labs and give him a dose of beta ancelmo to get his blood pressure down. Patient rested comfortably, felt better, his blood pressure came down to the 140s to 160s systolic. See instructions for plan. [] Dragon Disclaimer Dragon Disclaimer This electronic medical record was generated, in whole or in part, using a voice recognition dictation system. Departure Departure Impression: Primary Impression: Elevated blood pressure reading with diagnosis of hypertension Additional Impression: Headache Disposition: 01 HOME, SELF-CARE Condition: STABLE Referrals: NOAM BARNETT MD (PCP) Patient Instructions: Hypertension, [id number] Additional Instructions: Take your carvedilol 3.125 mg one every 12 hours. This medication only works for 12 hours that you have to take it every 12 hours, twice a day. Have your blood pressure checked every day and keep a log. Take the log with you when you see your account processor next week. If you have a headache, try taking some Tylenol or ibuprofen or Excedrin, these are [id number] medications that you may take once in a while as needed for headache or other pain. Problem Qualifiers MARK BOWEN MD Apr 03, 2017 00:18
[2017-04-03 00:28] LABS: POTASSIUM ISTAT 3.6 mmol/L (3.5-5.0)
[2017-04-03] MEDS ORDERED: CARVEDILOL 3.125 MG TABLET. PO ONE (00:30)
[2017-04-03] MEDS ORDERED: KETOROLAC TROMETHAMINE 30 MG/ML INJ. IV ONE (00:30)
[2017-04-03] MEDS ORDERED: METOPROLOL TARTRATE 5 MG/5 ML VIAL. IVP ONE (00:30)
[2017-04-03 00:57] VITALS: BP 149/82
--- NOTE | 2017-04-03 06:29 | EKG ---
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
== END 2017-04-03 01:13 | disposition home or self-care (01) ==
LOC: ER 22:59
DX: R51 Headache (principal); I10 Essential (primary) hypertension; I25.2 Old myocardial infarction
CPT/HCPCS: 80047; 84484; 93005; 96374; 96375; 99284; J1885; J3490

== ENCOUNTER → 2017-04-16 | Outpatient (CLI) | payer BC ==
[2017-04-03 00:57] VITALS: BP 149/82
--- NOTE | 2017-04-16 14:06 | CARD ---
APPROVED REPORT EXAM: Two-dimensional and M-mode echocardiogram with Doppler and color Doppler. Other Information Quality : GoodHR: 66bpm Rhythm : NSR INDICATION Non ischemic cardiomyopathy RISK FACTORS Hypertension 2D DIMENSIONS RVDd3.4 (2.9-3.5cm)Left Atrium(2D)4.9 (1.6-4.0cm) IVSd1.1 (0.7-1.1cm)Aortic Root(2D)2.9 (2.0-3.7cm) LVDd5.2 (3.9-5.9cm)LVOT Diameter2.3 (1.8-2.4cm) PWd1.1 (0.7-1.1cm)LVDs3.1 (2.5-4.0cm) FS (%) 40.9 %SV91.0 ml LVEF(%)71.3 (>50%) Aortic Valve AoV Peak Luis Angel.174.1cm/sAoV VTI33.5cm AO Peak GR.12.1mmHgLVOT Peak Luis Angel.96.3cm/s AO Mean GR.6mmHgAVA (VMAX)2.36cm2 Mitral Valve MV E Qmbfltxu39.3cm/sMV DECEL TAKY649le MV A Nnerhvup59.6cm/sE/A Ratio0.9 MV A [id number] Pulmonary Valve PV Peak Wfeyenza402.7cm/s Tricuspid Valve TR P. Xcopovka371ct/sTR Peak Gr.16mmHg Pulmonary Vein S1 Ouzntrzr63.1cm/sD2 Cypwkxnl67.8cm/s PVa [id number] LEFT VENTRICLE The left ventricle is normal size. There is borderline concentric left ventricular hypertrophy. The l eft ventricular systolic function is normal. The Ejection Fraction is 55-60 %. There is normal LV seg mental wall motion. Transmitral Doppler flow pattern is Grade I-abnormal relaxation pattern. RIGHT VENTRICLE The right ventricle is normal size. There is normal right ventricular wall thickness. The right ventr icular systolic function is normal. ATRIA The left atrium is mildly dilated. The right atrium size is normal. The interatrial septum is intact with no evidence for an atrial septal defect or patent foramen ovale as noted on 2-D or Doppler imagi ng. AORTIC VALVE The aortic valve is mildly sclerotic. The aortic valve is trileaflet. Doppler and Color Flow revealed no significant aortic regurgitation. There is no significant aortic valvular stenosis. MITRAL VALVE The mitral valve leaflets are mildly thickened There is no evidence of mitral valve prolapse. There i s no mitral valve stenosis. Doppler and Color Flow revealed mild mitral regurgitation. TRICUSPID VALVE Doppler and Color Flow revealed trace tricuspid regurgitation. The pulmonary artery systolic pressure is estimated at 19 mmHg. There is no pulmonary hypertension. PULMONIC VALVE The pulmonic valve is not well visualized but appears to open adequately. Doppler and Color Flow reve aled no pulmonic valvular regurgitation. There is no pulmonic valvular stenosis by spectral Doppler. GREAT VESSELS The aortic root is normal in size. The ascending aorta is normal in size. The pulmonary artery is nor mal. The IVC is normal in size and collapses >50% with inspiration. PERICARDIAL EFFUSION There is no evidence of significant pericardial effusion. Critical Notification Critical Value: No <Conclusion> The left ventricular systolic function is normal. The Ejection Fraction is 55-60 %. There is normal LV segmental wall motion. Mild mitral regurgitation. Trace tricuspid regurgitation. There is no evidence of significant pericardial effusion.
== END | disposition home or self-care (01) ==
LOC: ECHO 12:52
PROVIDERS: ATTEND Internal Medicine Cardiovascular Disease
DX: I34.0 Nonrheumatic mitral (valve) insufficiency (principal); I42.9 Cardiomyopathy, unspecified
CPT/HCPCS: 93306